=== PATIENT | male | born 1990 | race Caucasian/White ===

== ENCOUNTER 2020-03-26 19:04 | Emergency (ER) | payer SELFPAY ==
[~2020-03-26] VITALS: Ht 172.7 cm; Wt 68.0 kg
[~2020-03-26 19:04] MED LIST: ARIP10; BENZ1; DIPH25; GABA100; GABA300; IMIP25; MELA3; QUET300; RISP3; RISPERIDONE; SERT50
== END 2020-03-26 19:34 | disposition home or self-care (01) ==
LOC: ER 19:04
DX: F15.10 Other stimulant abuse, uncomplicated (principal); F17.200 Nicotine dependence, unspecified, uncomplicated; Z88.8 Allergy status to other drugs, medicaments and biological substances; Z79.899 Other long term (current) drug therapy
CPT/HCPCS: 99282

== ENCOUNTER 2020-03-29 16:34 | Emergency (ER) | payer SELFPAY ==
[~2020-03-29] VITALS: Ht 182.9 cm; Wt 79.4 kg
== END 2020-03-29 23:55 | disposition home or self-care (01) ==
LOC: ER 16:34
DX: F10.129 Alcohol abuse with intoxication, unspecified (principal); I10 Essential (primary) hypertension; Z88.8 Allergy status to other drugs, medicaments and biological substances; Z79.899 Other long term (current) drug therapy
CPT/HCPCS: 99284

== ENCOUNTER 2020-04-15 14:48 | Emergency (ER) | payer OTHER ==
[~2020-04-15] VITALS: Ht 190.5 cm; Wt 81.7 kg
[2020-04-15] MEDS ORDERED: GABA100 (17:11)
[2020-04-15] MEDS ORDERED: TRAZ50 PO (17:11)
[2020-04-15] MEDS ORDERED: HALO5 PO (17:22)
[2020-04-15] MEDS ORDERED: Vistaril25 MG PO (17:22)
== END 2020-04-15 17:30 | disposition home or self-care (01) ==
LOC: ER 14:48
DX: F25.9 Schizoaffective disorder, unspecified (principal); F41.9 Anxiety disorder, unspecified; I10 Essential (primary) hypertension; F17.200 Nicotine dependence, unspecified, uncomplicated; Z88.8 Allergy status to other drugs, medicaments and biological substances; Z79.899 Other long term (current) drug therapy
CPT/HCPCS: 99285

== ENCOUNTER 2020-04-23 10:24 | Emergency (ER) | payer OTHER ==
[~2020-04-23] VITALS: Ht 182.9 cm; Wt 72.6 kg
[~2020-04-23 10:24] MED LIST changes: +HALO5 PO; +TRAZ50 PO; +Vistaril25 MG PO
[2020-04-23] MEDS ORDERED: Naltrexone HCl50 MG PO (10:38)
== END 2020-04-23 11:23 | disposition home or self-care (01) ==
LOC: ER 10:24
DX: A63.0 Anogenital (venereal) warts (principal); F17.210 Nicotine dependence, cigarettes, uncomplicated; Z88.8 Allergy status to other drugs, medicaments and biological substances; Z79.899 Other long term (current) drug therapy
CPT/HCPCS: 99282

== ENCOUNTER 2020-04-24 17:23 | Observation (INO) | payer OTHER ==
[~2020-04-24] VITALS: Ht 177.8 cm; Wt 81.7 kg
[~2020-04-24 17:23] MED LIST changes: +Naltrexone HCl50 MG PO
[2020-04-24 19:00] LABS: BASOPHILS ABSOLUTE AUTO 0.05 K/mm3 (0.00-0.23); BASOPHILS PERCENT AUTO 1 % (0-2); EOSINOPHILS ABSOLUTE AUTO 0.22 K/mm3 (0.00-0.68); EOSINOPHILS PERCENT AUTO 3 % (0-6); Hematocrit 44.1 % (37.0-53.0); Hemoglobin 14.4 g/dL (13.5-17.5); IMMATURE GRAN ABSOLUTE AUTO 0.02 K/mm3 (0.00-0.10); IMMATURE GRAN PERCENT AUTO 0 % (0-1); LYMPHOCYTES ABSOLUTE AUTO 1.38 K/mm3 (0.84-5.20); LYMPHOCYTES PERCENT AUTO 18 % (21-46); MONOCYTES ABSOLUTE AUTO 0.72 K/mm3 (0.16-1.47); MONOCYTES PERCENT AUTO 9 % (4-13); Mean Corpuscular HGB 28.8 pg (26.0-34.0); Mean Corpuscular HGB Conc 32.7 g/dL (31.5-36.5); Mean Corpuscular Volume 88 fL (80-100); Mean Platelet Volume 10.2 fL (9.1-12.4); NEUTROPHILS ABSOLUTE AUTO 5.51 K/mm3 (1.96-9.15); NEUTROPHILS PERCENT AUTO 70 % (41-73); Platelet Count 250 K/mm3 (150-400); RDW Coefficient Variation 12.5 % (11.7-14.2); RDW Standard Deviation 40.9 fL (35.1-46.3)
[2020-04-24 19:20] LABS: Alanine Aminotransfer (ALT/SGP 39 U/L (12-78); Albumin, Blood 4.1 g/dL (3.4-5.0); Albumin/Globulin Ratio 1.1 (0.8-1.8); Alk Phos 125 U/L (50-136); Anion Gap 8 mmol/L (6-16); Aspartate Aminotrans (AST/SGOT 39 U/L (12-37); Bilirubin, Total 0.5 mg/dL (0.1-1.0); Blood Urea Nitrogen 13 mg/dL (8-24); Bun/Creatinine Ratio 18.4 (12.0-20.0); CO2, Blood 24 mmol/L (21-32); Calcium, Blood 9.3 mg/dL (8.5-10.1); Chloride, Blood 106 mmol/L (98-108); Creatinine, Blood 0.71 mg/dL (0.60-1.20); Ethanol (Alcohol), Blood, Med <3 mg/dL; Globulin, Blood 3.8 g/dL (2.2-4.0); Glomerular Filtration Rate >60 (60-); Glucose, Blood 87 mg/dL (70-99); Potassium, Blood 4.2 mmol/L (3.5-5.5); Salicylate 1.8 mg/dL (2.8-20.0); Sodium, Blood 138 mmol/L (136-145); Total Protein, Blood 7.9 g/dL (6.4-8.2)
[2020-04-24 19:34] LABS: Acetaminophen, Random <2.0 ug/mL (10.0-30.0)
[2020-04-24 19:50] LABS: Influenza A, PCR Negative (NEGATIVE); Influenza B, PCR Negative (NEGATIVE); Resp Syncytial Virus, PCR Negative (NEGATIVE); SARS-Cov-2 (COVID-19) PCR, MMC Negative (NEGATIVE)
[2020-04-24 20:33] LABS: U Amphetamine Screen Not Detected; U Barbituate Screen Not Detected; U Benzodiazapine Screen Not Detected; U Buprenorphine Screen Not Detected; U Cannabinoids Screen DETECTED; U Cocaine Screen Not Detected; U Methadone Screen Not Detected; U Methamphetamine Screen Not Detected; U Opiates Screen Not Detected; U Oxycodone Screen Not Detected; U Phencyclidine Screen Not Detected; U Propoxyphene Screen Not Detected
[2020-04-25] MEDS ORDERED: ARIP10 PO (09:30)
== END 2020-04-27 13:25 | disposition home or self-care (01) ==
LOC: ER 17:23 → EOR 17:24
PROVIDERS: ADMIT Student in an Organized Health Care Education/Training Program
DX: F31.64 Bipolar disorder, current episode mixed, severe, with psychotic features (principal); F20.3 Undifferentiated schizophrenia; F17.210 Nicotine dependence, cigarettes, uncomplicated; F10.10 Alcohol abuse, uncomplicated; F12.10 Cannabis abuse, uncomplicated; I10 Essential (primary) hypertension; J45.909 Unspecified asthma, uncomplicated; Z88.8 Allergy status to other drugs, medicaments and biological substances; Z79.899 Other long term (current) drug therapy; Z20.828 Contact with and (suspected) exposure to other viral communicable diseases; Z59.0 Homelessness; Y90.0 Blood alcohol level of less than 20 mg/100 ml
CPT/HCPCS: 0241U; 36415; 80053; 85025; 93005; 93010; 96372; 99285-25; G0378; G0480; J1200; J1630; J2250; Q0177; Q3014